=== PATIENT | female | born 1960 | race Caucasian/White ===

== ENCOUNTER 2017-05-11 14:55 | Emergency (ER) | payer OTHER ==
[~2017-05-11] VITALS: Ht 167.6 cm; Wt 123.2 kg
[~2017-05-11 14:55] MED LIST: ACETAMINOPHEN500 MG; ALPRAZOLAM1 MG PO; ASPIRIN81 M2 PO; Aspirin E.C. PO; BENTYL20 MG PO; CIPRO500 MG PO; DAILY VALUE1 EACH PO; FISH OIL 1,0001 EAC7 PO; FISH OIL CONC1 EACH PO; FLAGYL500 MG PO; Glucophage PO; LOPRESSOR25 MG PO; LOTENSIN40 MG PO; MECLIZINE HCL25 MG PO; MELOXICAM7.5 MG PO; METFORMIN HCL1000 MG PO; METFORMIN HCL500 MG PO; PRAVACHOL40 MG PO; PRAVASTATIN SOD40 MG PO; Pravachol PO; TYLENOL PM EX-1 EAC1 PO; VITAMIN C1000 MG PO; XANAX1 MG PO; Zestril,Prinivil PO
[2017-05-11] MEDS ORDERED: MOTRIN800 MG PO (17:57)
[2017-05-11] MEDS ORDERED: NORCO 5/3251 TABLET PO (17:57)
[2017-05-11] MEDS ORDERED: AUGMENTIN875 MG PO (17:57)
[2017-05-11 18:08] VITALS: BP 119/69
== END 2017-05-11 18:10 | disposition home or self-care (01) ==
LOC: EME 14:55
DX: H66.91 Otitis media, unspecified, right ear (principal); H72.91 Unspecified perforation of tympanic membrane, right ear; I10 Essential (primary) hypertension; E11.9 Type 2 diabetes mellitus without complications; Z79.84 Long term (current) use of oral hypoglycemic drugs; Z79.82 Long term (current) use of aspirin; F17.200 Nicotine dependence, unspecified, uncomplicated
CPT/HCPCS: 99281; 99284

== ENCOUNTER 2017-07-19 14:37 | Emergency (ER) | payer OTHER ==
[~2017-07-19] VITALS: Ht 167.6 cm; Wt 122.2 kg
[~2017-07-19 14:37] MED LIST changes: +AUGMENTIN875 MG PO; +MOTRIN800 MG PO; +NORCO 5/3251 TABLET PO
[2017-07-19 17:33] LABS: HEMATOCRIT 44.7 % (36.0-46.0); MCH 30.9 PG (29.0-34.0); MCHC 33.3 G/DL (30.0-36.0); MCV 92.7 FL (83-99); MEAN PLAT.VOLUME 10.3 uM^3 (9.5-12.4); PLATELET COUNT 262 K/uL (156-360); RBC DIS.WIDTH-SD 44.1 % (39-53); RED BLOOD COUNT 4.82 M/uL (3.80-5.20); WHITE BLOOD COUNT 9.6 K/uL (4.1-10.2)
[2017-07-19 17:42] LABS: CHLORIDE 108 mEq/L (99-109); SODIUM 142 mEq/L (136-147)
[2017-07-19 17:44] LABS: GLUCOSE 88 mg/dL (70-99)
[2017-07-19 17:45] LABS: ANION GAP 10 MEQ/L (2-14)
[2017-07-19 17:46] LABS: TOTAL BILIRUBIN 0.3 mg/dL (0.0-1.0)
[2017-07-19 17:48] LABS: ALKALINE PHOSPHATASE 82 IU/L (3-129); GFR ESTIMATE (CALCULATED) > 59 mL/min/
[2017-07-19 17:49] LABS: UREA NITROGEN (BUN) 11 mg/dL (9-23)
[2017-07-19] MEDS ORDERED: FIORICET 50-301 EAC1 PO (19:23)
[2017-07-19 20:08] VITALS: BP 117/69
== END 2017-07-19 20:09 | disposition home or self-care (01) ==
LOC: EME 14:37
PROVIDERS: Nurse Practitioner Family
DX: R51 Headache (principal); F17.200 Nicotine dependence, unspecified, uncomplicated; R42 Dizziness and giddiness; R11.0 Nausea; I10 Essential (primary) hypertension; E78.5 Hyperlipidemia, unspecified; Z79.82 Long term (current) use of aspirin; Z79.84 Long term (current) use of oral hypoglycemic drugs
CPT/HCPCS: 70450; 80053; 85027; 99281; 99284; J1200; J1885; J2765; J7030

== ENCOUNTER 2017-10-08 12:57 | Emergency (ER) | payer OTHER ==
[~2017-10-08] VITALS: Ht 167.6 cm; Wt 86.3 kg
[~2017-10-08 12:57] MED LIST changes: +FIORICET 50-301 EAC1 PO
[2017-10-08] MEDS ORDERED: MOTRIN800 MG PO (15:41)
[2017-10-08] MEDS ORDERED: NORCO 7.5/321 TABLET PO (15:41)
[2017-10-08] MEDS ORDERED: VALIUM5 MG PO (15:42)
[2017-10-08 15:58] VITALS: BP 113/76
== END 2017-10-08 16:02 | disposition home or self-care (01) ==
LOC: EME 12:57 → RME 12:57
DX: S39.012A Strain of muscle, fascia and tendon of lower back, initial encounter (principal); S30.0XXA Contusion of lower back and pelvis, initial encounter; S80.11XA Contusion of right lower leg, initial encounter; M54.16 Radiculopathy, lumbar region; W00.0XXA Fall on same level due to ice and snow, initial encounter; E78.5 Hyperlipidemia, unspecified; I10 Essential (primary) hypertension; Z79.82 Long term (current) use of aspirin; F17.200 Nicotine dependence, unspecified, uncomplicated; F32.9 Major depressive disorder, single episode, unspecified
CPT/HCPCS: 72100; 73502; 73590; 99281; 99283; J3010

== ENCOUNTER 2018-01-28 07:01 | Emergency (ER) | payer OTHER ==
[~2018-01-28] VITALS: Ht 167.6 cm; Wt 114.4 kg
[~2018-01-28 07:01] MED LIST changes: +NORCO 7.5/321 TABLET PO; +VALIUM5 MG PO
[2018-01-28 07:27] LABS: HEMATOCRIT 42.3 % (36.0-46.0); HEMOGLOBIN 14.4 G/DL (11.9-15.5); MCH 31.9 PG (29.0-34.0); MCV 93.8 FL (83-99); PLATELET COUNT 224 K/uL (156-360); RBC DIS.WIDTH-SD 44.8 % (39-53); RED BLOOD COUNT 4.51 M/uL (3.80-5.20); WHITE BLOOD COUNT 11.1 K/uL (4.1-10.2)
[2018-01-28 07:55] LABS: ALBUMIN 3.9 G/DL (3.2-4.8); ALKALINE PHOSPHATASE 65 IU/L (3-129); ALT (GPT) 13 IU/L (3-49); AST (GOT) 15 IU/L (2-34); CHLORIDE 104 MEQ/L (99-109); CREATININE 0.9 MG/DL (0.6-1.3); GFR ESTIMATE (CALCULATED) > 59 mL/min/; GLUCOSE 127 mg/dL (70-99); LIPASE 9 U/L (1.0-51.0); POTASSIUM 4.6 MEQ/L (3.7-5.4); SODIUM 140 MEQ/L (136-147); TOTAL BILIRUBIN 0.4 MG/DL (0.0-1.0); TOTAL PROTEIN 6.7 G/DL (6.4-8.3); UREA NITROGEN (BUN) 19 mg/dL (9-23)
[2018-01-28] MEDS ORDERED: FLAGYL500 MG PO (09:23)
[2018-01-28] MEDS ORDERED: ZOFRAN ODT4 MG PO (09:23)
[2018-01-28] MEDS ORDERED: BENTYL10 MG PO (09:23)
[2018-01-28] MEDS ORDERED: CIPRO500 MG PO (09:23)
[2018-01-28 09:47] VITALS: BP 110/64
== END 2018-01-28 09:49 | disposition home or self-care (01) ==
LOC: EME 07:01
PROVIDERS: Nurse Practitioner Family
DX: K57.30 Diverticulosis of large intestine without perforation or abscess without bleeding (principal); R11.2 Nausea with vomiting, unspecified; I10 Essential (primary) hypertension; E78.5 Hyperlipidemia, unspecified; F32.9 Major depressive disorder, single episode, unspecified; F17.200 Nicotine dependence, unspecified, uncomplicated; Z79.82 Long term (current) use of aspirin
CPT/HCPCS: 74177; 80053; 83690; 85027; 99281; 99285; J2405; J3010; J7030